=== PATIENT | male | born 1955 | race Hispanic/Latino ===

== ENCOUNTER 2018-03-21 16:49 | Emergency (ER) | payer BC ==
[~2018-03-21] VITALS: Ht 167.6 cm; Wt 83.9 kg
--- OUTSIDE RECORDS SUMMARY | 2018-03-21 16:51 | XMS REPORT ---
Author [facility] Address Unknown Phone Unavailable Care Team Providers Care Lease Broker Name Role Phone JULIANNA BEACH Unavailable Unavailable Problems This patient has no known problems. Allergies, Adverse Reactions, Alerts This patient has no known allergies or adverse reactions. Medications This patient has no known medications. Encounters Start Date/Time End Date/Time Encounter Type Admission Type Attending Clinicians Care Facility Care Department Encounter ID 2017-04-22 00:52:00 2017-04-22 01:55:00 Emergency E JULIANNA BEACH [facility] [id number] Results Test Description Test Time Test Comments Text Results Atomic Results Result Comments XR SHOULDER LEFT 3 VIEWS 2017-04-22 01:28:21 AFTER HOURS SERVICE ON: 04/22/2017 1:27 AMLeft Shoulder, 3 ViewsLocation Code [id number]: [id number]: Traumatic injuryFindings:There is normal anatomic alignment. No fracture or dislocation is seen. Glenohumeral joint is within normal limits. Mild degenerative spurring noted inthe acromioclavicular joint.Impression:1. No acute findings.2. Mild degenerative changes in the acromioclavicular joint. XR CHEST 2 VIEW 2017-04-22 01:27:01 AFTER HOURS SERVICE ON: 04/22/2017 1:26 AMChest, PA and LateralLocation Code [id number]: [id number]: Traumatic injuryFindings: There are no infiltrates. There are no pleural effusions. There is nopneumothorax. Cardiac silhouette and mediastinum appear within normal limits. Impression: No active intrathoracic findings.
[2018-03-21] MEDS ORDERED: DEXAMETHASONE SOD PHOS 10 MG/1 ML VIAL INJ ONE (17:15)
[2018-03-21] MEDS ORDERED: CYCLOBENZAPRINE HCL 10 MG TAB PO ONE (17:15)
[2018-03-21] MEDS ORDERED: HYDROCODONE/APAP 10MG-325MG TAB PO ONE (17:15)
== END 2018-03-21 18:20 | disposition home or self-care (01) ==
LOC: ER 16:49
DX: M54.42 Lumbago with sciatica, left side (principal); I10 Essential (primary) hypertension; E11.9 Type 2 diabetes mellitus without complications
CPT/HCPCS: 99283; J1100

== ENCOUNTER 2018-04-26 13:00 | Outpatient (RCR) | payer BC | END 2018-05-02 | LOC: PT 13:00 | PROVIDERS: ATTEND Family Medicine | DX: M54.16 Radiculopathy, lumbar region (principal) ==

== ENCOUNTER 2019-02-09 13:52 | Inpatient (IN) | payer BC ==
[~2019-02-09] VITALS: Ht 167.6 cm; Wt 73.2 kg
[2019-02-09] MEDS ORDERED: ASPIRIN 81 MG CHEW TAB PO ONE ×2 (14:15→18:00)
--- NOTE | 2019-02-09 14:37 | NUR ---
PATIENT TO ROOM 2
--- NOTE | 2019-02-09 14:43 | NUR ---
PATIENT BP 185/90, PATIENT RAN OUT OF MEDS AND DOES NOT HAVE A PCP
[2019-02-09 15:25] LABS: BASOPHILS # (AUTO) 0.1 (0.0-0.1); BASOPHILS % 0.4 % (0.0-1.0); EOSINOPHILS # (AUTO) 0.3 (0.0-0.4); EOSINOPHILS % 1.9 % (0.0-6.0); HEMATOCRIT 43.4 % (38.2-49.6); LYMPHOCYTES # (AUTO) 1.6 (1.0-3.2); LYMPHOCYTES % 11.7 % (18.0-39.1); MEAN CORPUSCULAR HEMOGLOBIN 29.9 pg (28-32); MEAN CORPUSCULAR HGB CONC 34.6 g/dL (31-35); MEAN CORPUSCULAR VOLUME 86.5 fL (81-99); MONOCYTES # (AUTO) 1.1 (0.2-0.8); MONOCYTES % 8.1 % (4.4-11.3); NEUTROPHILS # (AUTO) 10.3 (2.1-6.9); NEUTROPHILS % 77.3 % (38.7-80.0); PLATELET COUNT 304 x10e3/uL (140-360); RED BLOOD COUNT 5.02 x10e6/uL (4.3-5.7); RED CELL DISTRIBUTION WIDTH 11.9 % (11.7-14.4)
--- NOTE | 2019-02-09 15:26 | Diagnostic Imaging Report ---
EXAMINATION: CHEST SINGLE (PORTABLE) COMPARISON: None INDICATION: ^CHEST PAIN ^[id number] ^1445 ^Y DISCUSSION: Frontal view of the chest obtained at 1453 hours. HEART AND MEDIASTINUM: The heart is enlarged. There are calcifications of the aortic arch LINES: None. LUNGS: Pulmonary vascular markings are prominent. Right infrahilar airspace opacity. No pneumonia or pulmonary edema. PLEURA: No pleural effusion or pneumothorax. BONES AND SOFT TISSUES: Degenerative changes of the spine and shoulders.. The soft tissues are normal. IMPRESSION: Cardiomegaly and pulmonary vascular congestion. Right infrahilar airspace opacity may represent atelectasis or infiltrate Signed by: Dr. Naseem Blanco MD on 02/09/2019 3:22 PM
[2019-02-09 15:29] LABS: CLARITY,URINE HAZY (CLEAR); COLOR,URINE YELLOW (YELLOW); LEUKOCYTE ESTERASE ,URINE NEGATIVE (NEGATIVE); NITRITE,URINE NEGATIVE (NEGATIVE); PROTEIN,URINE DIPSTICK TRACE (NEGATIVE)
[2019-02-09 15:30] LABS: BILIRUBIN,URINE NEGATIVE (NEGATIVE); KETONES,URINE NEGATIVE (NEGATIVE); URINE UROBILINOGEN 0.2 mg/dL (0.2 - 1)
[2019-02-09 15:32] LABS: AMORPHOUS SEDIMENT,URINE FEW (FEW); BACTERIA,URINE FEW /HPF; EPITHELIAL CELLS,URINE FEW /LPF; RBC,URINE 0-5 /HPF (0-5); WBC,URINE (MAN) 0-5 /HPF (0-5)
[2019-02-09 15:39] LABS: INR 1.13
[2019-02-09 15:40] LABS: PARTIAL THROMBOPLASTIN TIME 34.3 seconds (23.8-35.5)
[2019-02-09 15:47] LABS: ALANINE AMINOTRANSFERASE 14 IU/L (0-55); ALBUMIN 3.2 g/dL (3.5-5.0); ALBUMIN/GLOBULIN RATIO 0.9 (0.8-2.0); ALKALINE PHOSPHATASE 73 IU/L (40-150); ANION GAP 13.4 mmol/L (8-16); BLOOD UREA NITROGEN 14 mg/dL (7-26); BUN/CREATININE RATIO 13 (6-25); CALCIUM 9.1 mg/dL (8.4-10.2); CARBON DIOXIDE 24 mmol/L (22-29); CHLORIDE 103 mmol/L (98-107); CREATINE KINASE 105 IU/L (30-200); CREATININE, SERUM 1.07 mg/dL (0.72-1.25); EST GLOMERULAR FILTRATION RATE > 60 ML/MIN (60-); GLUCOSE 305 mg/dL (74-118); POTASSIUM 3.4 mmol/L (3.5-5.1); SODIUM 137 mmol/L (136-145)
[2019-02-09] MEDS ORDERED: MORPHINE SULFATE 2 MG/ML SYR 1ML IV PRN (17:15)
[2019-02-09] MEDS ORDERED: ONDANSETRON HCL INJ 2MG/ML 2ML 2 MG/ML VIAL IV PRN (17:15)
[2019-02-09] MEDS ORDERED: NITROGLYCERIN 2% OINT 1 GM PKT ONE (17:26)
[2019-02-09] MEDS ORDERED: CEFTRIAXONE SOD 500 MG VIAL ONE (17:26)
[2019-02-09] MEDS ORDERED: FUROSEMIDE INJ 10 MG/ML 2 ML VIAL ONE (17:26)
[2019-02-09] MEDS: CEFTRIAXONE SOD 1 GM/NS 50 ML 50 ML IV SCH (17:44)
[2019-02-09] MEDS ORDERED: NITROGLYCERIN 2% OINT 1 GM PKT TOP SCH (18:00)
[2019-02-09] MEDS ORDERED: FUROSEMIDE INJ 10 MG/ML 2 ML VIAL IV ONE (18:00)
[2019-02-09] MEDS ORDERED: NITROGLYCERIN 2% OINT 1 GM PKT TOP ONE (18:00)
[2019-02-09] MEDS ORDERED: DEXTROSE 50% SYRINGE 50 ML IV PRN (18:00)
--- NOTE | 2019-02-09 18:02 | NUR ---
KITCHEN TO BRING PATIENT MEAL TRAY
[2019-02-09] MEDS: AZITHROMYCIN 500MG/NS 250 ML 250 ML IV SCH (18:09)
[2019-02-09] MEDS: INSULIN REGULAR, HUMAN 100 UNIT/1 ML 3ML VIAL SQ SCH (18:09)
[2019-02-09] MEDS ORDERED: GLYBURIDE-METF1 EAC1 PEG (18:23)
[2019-02-09] MEDS ORDERED: LOSARTAN (18:23)
[2019-02-09] MEDS ORDERED: HYDRALAZINE HCL 20 MG/ML VIAL IV PRN (20:30)
[2019-02-09 23:15] LABS: CREATINE KINASE MB 0.7 ng/mL (0-5.0)
[2019-02-10] VITALS (8 sets, daily range): BP systolic 151–174; BP diastolic 79–96
[2019-02-10] MEDS: NITROGLYCERIN 2% OINT 1 GM PKT TOP SCH ×4 (01:06→17:34)
[2019-02-10 05:44] LABS: BASOPHILS # (AUTO) 0.1 (0.0-0.1); BASOPHILS % 0.4 % (0.0-1.0); EOSINOPHILS # (AUTO) 0.2 (0.0-0.4); EOSINOPHILS % 1.3 % (0.0-6.0); HEMATOCRIT 43.6 % (38.2-49.6); HEMOGLOBIN 14.7 g/dL (14.0-18.0); LYMPHOCYTES # (AUTO) 1.9 (1.0-3.2); LYMPHOCYTES % 13.2 % (18.0-39.1); MEAN CORPUSCULAR HEMOGLOBIN 29.2 pg (28-32); MEAN CORPUSCULAR HGB CONC 33.7 g/dL (31-35); MEAN CORPUSCULAR VOLUME 86.7 fL (81-99); MONOCYTES # (AUTO) 1.5 (0.2-0.8); MONOCYTES % 10.1 % (4.4-11.3); NEUTROPHILS # (AUTO) 10.8 (2.1-6.9); NEUTROPHILS % 74.2 % (38.7-80.0); PLATELET COUNT 296 x10e3/uL (140-360); RED BLOOD COUNT 5.03 x10e6/uL (4.3-5.7); RED CELL DISTRIBUTION WIDTH 11.7 % (11.7-14.4)
[2019-02-10 06:18] LABS: CREATINE KINASE MB 0.7 ng/mL (0-5.0)
[2019-02-10 06:33] LABS: ALANINE AMINOTRANSFERASE 13 IU/L (0-55); ALBUMIN/GLOBULIN RATIO 0.8 (0.8-2.0); ALKALINE PHOSPHATASE 67 IU/L (40-150); ANION GAP 15.4 mmol/L (8-16); BLOOD UREA NITROGEN 13 mg/dL (7-26); BUN/CREATININE RATIO 13 (6-25); CALCIUM 9.5 mg/dL (8.4-10.2); CARBON DIOXIDE 22 mmol/L (22-29); CHLORIDE 102 mmol/L (98-107); CHOL/HDL RATIO 4.5 (3.9-4.7); CHOLESTEROL 131 MD/DL (0-199); EST GLOMERULAR FILTRATION RATE > 60 ML/MIN (60-); GLUCOSE 177 mg/dL (74-118); HDL CHOLESTEROL 29 MG/DL (40-60); LDL CHOLESTEROL 87 MG/DL (60-130); POTASSIUM 3.4 mmol/L (3.5-5.1); SODIUM 136 mmol/L (136-145); TRIGLYCERIDES 75 MG/DL (0-149)
--- NOTE | 2019-02-10 07:00 | NUR ---
RCD PT AT BED PT IS ALERT AND ORIENTED PT RESTING ON BED NO SIGNS OF ANY DISTRESS NOTED IV PATENT BY SALINE FLUSH FAMILY AT BED SIDE BED LOW AND LOCKED CALL LIGHT IN REACH
--- NOTE | 2019-02-10 07:04 | NUR ---
report given to day nurse. patient is resting comfortably in bed. bed is in lowest position and call rod is within reach.
[2019-02-10] MEDS: INSULIN REGULAR, HUMAN 100 UNIT/1 ML 3ML VIAL SQ SCH ×4 (07:30→21:00)
[2019-02-10] MEDS: ASPIRIN 81 MG ENTERIC COATED PO SCH (09:00)
[2019-02-10] MEDS: ALBUTEROL/IPRATROPIUM 3 ML NEB NEB SCH ×4 (11:00→23:00)
[2019-02-10] MEDS ORDERED: KCL 20MEQ/.9 SOD CHL 1,000 ML IV ONE (11:30)
[2019-02-10] MEDS ORDERED: POTASSIUM CHLORIDE 20 MEQ TAB CR PO ONE (11:45)
[2019-02-10] MEDS: METFORMIN HCL 500 MG TAB PO SCH ×2 (12:00→17:00)
[2019-02-10] MEDS: GLYBURIDE 5 MG TAB PO SCH ×2 (12:00→17:00)
[2019-02-10 15:59] LABS: CREATINE KINASE MB 0.8 ng/mL (0-5.0)
--- NOTE | 2019-02-10 16:06 | Consultation ---
DATE OF CONSULTATION: Pulmonary Critical Care Consultation CHIEF COMPLAINT: Congestion and cough with discolored phlegm. PRIMARY CARE PHYSICIAN: Dr. Bob Ortiz. HISTORY OF PRESENT ILLNESS: The patient is a 63-year-old man. He has a history of hypertension and diabetes, but has never had any cardiac problems. He denies any prior respiratory problems. He has no history of tuberculosis, bronchiectasis, COPD, or asthma. Over the past week, he has noticed increased fatigue. He reports a cough productive of some yellowish and green phlegm. He has no chest pain. He had some sweating at night and possibly some fevers. PAST MEDICAL HISTORY: 1. Hypertension. 2. Diabetes. 3. No prior history of tuberculosis, asthma, COPD, or other respiratory problems. PAST SURGICAL HISTORY: Status post appendectomy. FAMILY HISTORY: History of diabetes and kidney disease. There is also history of cancer in a sister. SOCIAL HISTORY: The patient is not an active smoker. He is not a drinker. 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 ALLERGIES: NO KNOWN DRUG ALLERGIES. REVIEW OF SYSTEMS: The patient did have some fever and chills. He had some night sweats. He has no headache. He has no neck pain. He did not complain of chest pain. He does have a cough productive of discolored phlegm. He has no abdominal pain. There is no nausea or vomiting. He has no leg edema. He has no neurological complaints. PHYSICAL EXAMINATION: VITAL SIGNS: Blood pressure is 154/83 and the pulse is 89. Respiratory rate is 18. Saturation is 96% on 2 L. CARDIAC: Reveals regular rate and rhythm with a normal S1 and S2. There are no murmurs or rubs. LUNGS: Auscultation of lungs reveals rhonchorous breath sounds bilaterally. There is no wheezing. ABDOMEN: Soft and nontender. There is no rebound or guarding. EXTREMITIES: Shows no leg edema or calf tenderness. There is no cyanosis or clubbing. SKIN: Shows no rashes. NEUROLOGICAL: Shows no focal abnormalities. RADIOGRAPHIC DATA: Chest x-ray shows cardiomegaly and some pulmonary venous congestion. There is a right airspace opacity, which may represent an infiltrate. LABORATORY DATA: Potassium is 3.4 and the other electrolytes within normal limits. Blood sugar is 170 to 180. White blood cell count is 14.6 and hemoglobin is 14.7. The platelet count is 296. IMPRESSION: 1. Community-acquired pneumonia with sepsis, present on admission. 2. Possible congestive heart failure. 3. Hypertension. 4. Diabetes. 5. Hypokalemia. PLAN: 1. Continue current antibiotics. 2. Judicious use of IV fluids. 3. Continue to monitor blood sugars and adjust insulin. 4. Await echocardiogram and Cardiology evaluation. 5. Nasal swab for influenza. Hector Hummel MD [facility]/MODL /[id number]
[2019-02-10] MEDS: FAMOTIDINE 20 MG TAB PO SCH (16:30)
[2019-02-10] MEDS: DOCUSATE SODIUM 100 MG CAP PO SCH (17:00)
[2019-02-10] MEDS: CEFTRIAXONE SOD 1 GM/NS 50 ML 50 ML IV SCH (17:30)
[2019-02-10] MEDS: AZITHROMYCIN 500MG/NS 250 ML 250 ML IV SCH (17:34)
--- NOTE | 2019-02-10 19:00 | NUR ---
PT RESTING ON BED BED SIDE REPORT GIVEN TO ONCOMING NURSE
--- NOTE | 2019-02-10 19:00 | NUR ---
Received patient awake, not in distress, no complaints of pain at this time, daughter at bedside. Call light within easy reach, advised to call anytime as needed. Will continue to monitor
--- NOTE | 2019-02-10 19:09 | NUR ---
Nutrition Screen Note RD Recommendation for Physician: -Recommend low sodium/diabetic diet Plan of Care: RD following, monitoring for tolerance and adequacy Nutrition reason for involvement: diagnosis - CHF Primary Diagnose(s): new onset congestive heart failure and pneumonia PMH: HTN, diabetes Ht: 66 in Wt:161.37 lb BMI: 26.0 kg/m2 IBW:[address] Assessment: (02/10/19) Chart reviewed. Labs and meds reviewed. Pt is a 63 year old male admitted with new onset CHF and pneumonia. Pt was sleeping at time of visit; therefore, spoke to family member. Pt has been eating 50% of meals for the past week and a half. Prior to this, pt was eating well. No wt loss reported by family member and pt usually weighs 165 lbs. However, pt currently has a wt of 161 lbs in chart. No N/V/D/C or chewing/swallowing issues noted. Will continue to monitor. Current Diet: 1800 kcal ADA diet Malnutrition Evaluation (02/10/19) The patient does not meet criteria for a specified degree of malnutrition at this time. Will re-evaluate at follow-up as appropriate. Energy intake: Pt has been eating 50% of meals for the past week and a half per family member. Weight loss: No weight loss reported Fat loss: unable to evaluate Muscle loss: unable to evaluate Supporting Evidence: Fluid accumulation: unable to evaluate Functional Status: unable to evaluate Diet Education Needs Assessment: Family member was interested in receiving diet education materials for pt. Pt speaks Lao, therefore, handouts in the Lao language regarding a low sodium and diabetic diet were provided. Nutrition Care Level: moderate Signed: Kayla Covarrubias, RD, LD
--- NOTE | 2019-02-10 19:22 | Diagnostic Imaging Report ---
CT chest pulmonary embolism protocol CPT code: 94568 INDICATION: ^Congestion and possible pneumonia ^[id number] ^1838 TECHNIQUE: Thin collimation axial images obtained through the level of the pulmonary arteries with additional imaging through the chest following the uneventful administration of 100 cc of low osmolar, nonionic intravenous contrast. Images reconstructed into coronal and sagittal MIPs for complete evaluation of the tortuous and overlapping pulmonary vascular structures and to reduce patient radiation dose. RADIATION DOSE: Total DLP: 492.96 mGy*cm Estimated effective dose: (DLP x 0.015 x size factor) mSv CTDIvol has been reviewed. It is below the limits set by the Radiation Protocol Committee (RPC). Dose reduction techniques used: Automated exposure control, adjustment of the mAs and/or kVp according to patient size, standardized low-dose protocol, and/or iterative reconstruction technique. COMPARISON: Chest x-ray 02/09/2019. FINDINGS: Images are motion degraded. Pulmonary artery: No filling defects are appreciated within the main, left, right, lobar or visualized segmental pulmonary arteries to suggest embolism. The main pulmonary artery measures 2.7 cm in diameter. The right pulmonary artery measures 2.3 cm in diameter. The left pulmonary artery measures 2.5 cm in diameter. Aorta: The ascending aorta measures 4.1 cm in diameter. No evidence for dissection. Lymph nodes: No enlarged axillary or supraclavicular lymph nodes. Lymph nodes in the AP window are increased in number measuring up to 7 mm. Right peritracheal lymph node measures 0.8 cm. Subcarinal lymph node measures 1.1 cm. The hilar lymphoid tissue is also prominent, right more so than the left. Thyroid: Visualized portions are normal. Mediastinum: The heart is enlarged. No pericardial effusion. The esophagus is collapsed. Lungs: Right Lung: Patchy infiltrates in the inferior aspect of the lower lobe. Small focus of groundglass attenuation the posterior upper lobe. Small amount of atelectasis in the lateral segment of the middle lobe adjacent to the diaphragm. Left Lung: Patchy infiltrates in the lower lobe and lingula. Microatelectasis in the posterior aspect of the upper lobe. Pleura: No pleural effusion or pleural based mass. Abdomen: Visualized portions of the upper abdomen demonstrate no evidence of mass or lymphadenopathy. The liver appears enlarged. Bones: No focal osseous lesions. Mild degenerative changes of the spine and shoulders. IMPRESSION: 1. Motion degraded exam. No evidence of pulmonary embolus. Ascending aortic aneurysm. No dissection. 2. Multifocal airspace opacities suggestive of pneumonia. Prominent mediastinal and hilar lymph nodes are likely reactive from infectious process. 3. Suspected hepatomegaly. This could be confirmed with abdominal ultrasound. 4. Cardiomegaly. No evidence of CHF. Signed by: Dr. Naseem Blanco MD on 02/10/2019 7:19 PM
[2019-02-10] MEDS ORDERED: IOPAMIDOL 370 MG/ML 200 ML INFUS..BTL INJ ONE (19:55)
[2019-02-10] MEDS ORDERED: SODIUM CHLORIDE 0.9% 50ML 50 ML ONE (19:55)
[2019-02-11] VITALS (10 sets, daily range): BP systolic 157–179; BP diastolic 72–97
[2019-02-11] MEDS: NITROGLYCERIN 2% OINT 1 GM PKT TOP SCH ×5 (00:21→23:25)
[2019-02-11] MEDS: ALBUTEROL/IPRATROPIUM 3 ML NEB NEB SCH ×5 (03:00→20:15)
[2019-02-11 03:43] LABS: BASOPHILS # (AUTO) 0.1 (0.0-0.1); BASOPHILS % 0.4 % (0.0-1.0); EOSINOPHILS # (AUTO) 0.1 (0.0-0.4); EOSINOPHILS % 0.8 % (0.0-6.0); HEMATOCRIT 42.1 % (38.2-49.6); HEMOGLOBIN 14.1 g/dL (14.0-18.0); LYMPHOCYTES # (AUTO) 1.8 (1.0-3.2); LYMPHOCYTES % 11.8 % (18.0-39.1); MEAN CORPUSCULAR HGB CONC 33.5 g/dL (31-35); MEAN CORPUSCULAR VOLUME 86.6 fL (81-99); MONOCYTES # (AUTO) 1.1 (0.2-0.8); MONOCYTES % 7.3 % (4.4-11.3); NEUTROPHILS # (AUTO) 12.1 (2.1-6.9); NEUTROPHILS % 78.7 % (38.7-80.0); PLATELET COUNT 309 x10e3/uL (140-360); RED BLOOD COUNT 4.86 x10e6/uL (4.3-5.7); RED CELL DISTRIBUTION WIDTH 11.7 % (11.7-14.4)
[2019-02-11 04:06] LABS: ANION GAP 14.5 mmol/L (8-16); BLOOD UREA NITROGEN 13 mg/dL (7-26); BUN/CREATININE RATIO 14 (6-25); CALCIUM 8.9 mg/dL (8.4-10.2); CARBON DIOXIDE 22 mmol/L (22-29); CHLORIDE 107 mmol/L (98-107); CREATININE, SERUM 0.96 mg/dL (0.72-1.25); EST GLOMERULAR FILTRATION RATE > 60 ML/MIN (60-); GLUCOSE 82 mg/dL (74-118); MAGNESIUM 2.1 MG/DL (1.3-2.1); PHOSPHORUS 3.5 MG/DL (2.3-4.7); POTASSIUM 3.5 mmol/L (3.5-5.1); SODIUM 140 mmol/L (136-145)
[2019-02-11] MEDS: HYDRALAZINE HCL 20 MG/ML VIAL IV PRN ×2 (05:36→20:16)
[2019-02-11] MEDS ORDERED: ACETAMINOPHEN 325 MG TAB PO PRN (05:45)
[2019-02-11] MEDS ORDERED: MELATONIN 5 MG TABLET PO PRN (05:45)
[2019-02-11] MEDS ORDERED: ACETAMINOPHEN/CODEINE 300MG - 30MG TAB PO PRN (05:45)
[2019-02-11] MEDS: INSULIN REGULAR, HUMAN 100 UNIT/1 ML 3ML VIAL SQ SCH ×4 (07:30→20:17)
[2019-02-11] MEDS: METFORMIN HCL 500 MG TAB PO SCH ×3 (08:55→17:20)
[2019-02-11] MEDS: FUROSEMIDE 20 MG TAB PO SCH (08:55)
[2019-02-11] MEDS: GUAIFENESIN 600MG/DEXTROMETHORPHAN 30MG TABSR PO SCH ×2 (08:55→19:00)
[2019-02-11] MEDS: DOCUSATE SODIUM 100 MG CAP PO SCH ×2 (08:55→17:20)
[2019-02-11] MEDS: POTASSIUM CHLORIDE 10MEQ EA PO SCH (08:55)
[2019-02-11] MEDS: GLYBURIDE 5 MG TAB PO SCH ×3 (08:55→17:20)
[2019-02-11] MEDS: ASPIRIN 81 MG ENTERIC COATED PO SCH (08:55)
[2019-02-11] MEDS: FAMOTIDINE 20 MG TAB PO SCH ×2 (08:55→17:20)
[2019-02-11] MEDS ORDERED: LOSARTAN POTASSIUM 25 MG TAB PO SCH (09:00)
[2019-02-11] MEDS ORDERED: SODIUM CHLORIDE 0.9% 250ML 250 ML ONE (16:51)
[2019-02-11] MEDS: CEFTRIAXONE SOD 1 GM/NS 50 ML 50 ML IV SCH (17:20)
[2019-02-11] MEDS: AZITHROMYCIN 500MG/NS 250 ML 250 ML IV SCH (18:18)
--- NOTE | 2019-02-11 18:34 | Progress Note ---
DATE: SUBJECTIVE: The patient feels better. He has less congestion and less cough. PHYSICAL EXAMINATION: VITAL SIGNS: The blood pressure is 162/87. Pulse is 93. Saturation is 89%. CARDIAC: Reveals regular rate and rhythm with normal S1 and S2. LUNGS: Auscultation of lungs reveals clear breath sounds bilaterally. There is no wheezing. ABDOMEN: Soft and nontender. There is no rebound or guarding. EXTREMITIES: Shows no leg edema or calf tenderness. There is no cyanosis or clubbing. SKIN: Shows no rashes. NEUROLOGICAL: Shows no focal abnormalities. DIAGNOSTIC DATA: CT scan of the chest shows multifocal airspace opacities, suggestive of pneumonia as well as some cardiomegaly. IMPRESSION: 1. Community-acquired pneumonia with sepsis, present on admission. 2. Hypertension. 3. Diabetes. PLAN: 1. Okay to switch to p.o. antibiotics. 2. Continue IV fluids. 3. Complete Cardiology evaluation. Hector Hummel MD [facility]/JOON /[id number]
--- NOTE | 2019-02-11 23:40 | NUR ---
PCT retook blood pressure just prior to new Nitro patch application. Blood pressure elevated and new nitro patch applied to left chest.
[2019-02-12] VITALS (13 sets, daily range): BP systolic 140–190; BP diastolic 70–88
[2019-02-12 02:24] LABS: BASOPHILS # (AUTO) 0.1 (0.0-0.1); BASOPHILS % 0.6 % (0.0-1.0); EOSINOPHILS # (AUTO) 0.3 (0.0-0.4); EOSINOPHILS % 2.1 % (0.0-6.0); HEMATOCRIT 38.8 % (38.2-49.6); LYMPHOCYTES # (AUTO) 2.2 (1.0-3.2); LYMPHOCYTES % 17.9 % (18.0-39.1); MEAN CORPUSCULAR HEMOGLOBIN 29.5 pg (28-32); MEAN CORPUSCULAR HGB CONC 33.5 g/dL (31-35); MONOCYTES # (AUTO) 0.9 (0.2-0.8); MONOCYTES % 7.6 % (4.4-11.3); NEUTROPHILS # (AUTO) 8.7 (2.1-6.9); NEUTROPHILS % 70.5 % (38.7-80.0); PLATELET COUNT 313 x10e3/uL (140-360); RED BLOOD COUNT 4.41 x10e6/uL (4.3-5.7); RED CELL DISTRIBUTION WIDTH 11.8 % (11.7-14.4)
[2019-02-12] MEDS: LEVALBUTEROL HCL SOLN NEBU 0.63 MG/3 ML NEB INH SCH ×3 (02:30→12:05)
[2019-02-12 02:40] LABS: ANION GAP 15.5 mmol/L (8-16); BLOOD UREA NITROGEN 11 mg/dL (7-26); BUN/CREATININE RATIO 13 (6-25); CALCIUM 8.6 mg/dL (8.4-10.2); CARBON DIOXIDE 20 mmol/L (22-29); CHLORIDE 110 mmol/L (98-107); CREATININE, SERUM 0.86 mg/dL (0.72-1.25); EST GLOMERULAR FILTRATION RATE > 60 ML/MIN (60-); GLUCOSE 71 mg/dL (74-118); MAGNESIUM 1.7 MG/DL (1.3-2.1); POTASSIUM 3.5 mmol/L (3.5-5.1); SODIUM 142 mmol/L (136-145)
--- NOTE | 2019-02-12 03:37 | Consultation ---
DATE OF CONSULTATION: 02/11/2019 Cardiology consultation CONSULTING PHYSICIAN: James Gonzalez MD, Interventional Cardiology. REASON FOR CONSULTATION: Heart failure. HISTORY OF PRESENT ILLNESS: Pleasant 63-year-old man with history of hypertension and diabetes mellitus type 2, former smoker, who presents with two weeks onset cough with productive sputum. He reports subjective fevers. He reports associated orthopnea in the last couple of days. He does endorse lower extremity dependent edema while working, however, now in recent days. Imaging studies were remarkable for cardiomegaly and patchy infiltrates concerning for pneumonia. His BNP noted to be elevated. ALLERGIES: NO KNOWN DRUG ALLERGIES. PAST MEDICAL HISTORY: Hypertension and diabetes. SOCIAL HISTORY: No active smoking, occasional alcohol use. No drugs. FAMILY HISTORY: Noncontributory. REVIEW OF SYSTEMS: A 12-system review is negative except for as noted above. HOME MEDICATIONS: Reviewed. Please see a separate note. PHYSICAL EXAMINATION: VITAL SIGNS: Temperature 96.1, heart rate is 77, blood pressure 174/97, respiratory rate 14, and O2 saturation 96%. BMI 25.9. GENERAL: In no acute distress. Alert. Neck: JVD elevated in lower third of neck. CHEST: With scattered rales. CARDIOVASCULAR: Regular rate and rhythm. Normal S1 and S2. No S3, no S4. Systolic ejection murmur 1/6. ABDOMEN: Soft. Bowel sounds positive. EXTREMITIES: No edema. Decreased right dorsalis pedis and posterior tibial pulses, 2+ left DP/PT pulses. CARDIOVASCULAR MEDICATIONS: 1. Aspirin 81 mg daily. 2. Losartan 25 mg daily. 3. Hydralazine 10 mg q.4 hours p.r.n. 4. Furosemide 20 mg daily. 5. Potassium chloride 10 mEq daily. 6. Receiving azithromycin and ceftriaxone. STUDIES: Reviewed. Sodium 140, potassium 3.5, chloride 107, bicarbonate 22, BUN 13, creatinine 0.9, and glucose 82. White blood cells 15, hemoglobin 14, and platelets 309. INR 1.13. AST 11 and ALT 13. ASSESSMENT AND PLAN: 1. A 63-year-old man presents with pneumonia, noted to have chronic systolic heart failure with acute exacerbation activated by elevated BNP and increasing orthopnea. 2. Diabetes. 3. Hypertension. RECOMMEND: 1. Echocardiogram remarkable for mild systolic impairment in LV function. 2. Beta austin and ARB. 3. Volume optimization with furosemide as needed. 4. At a later date as outpatient, coronary assessment advised. 5. On exam, abnormal pedal pulses to left lower extremity, warrant further outpatient evaluation for peripheral artery disease. This has been discussed with the patient. Thank you for the opportunity to participate in the care of Mr. Reginald Jensen. MD [facility]/JOON /[id number]
[2019-02-12] MEDS: NITROGLYCERIN 2% OINT 1 GM PKT TOP SCH (05:13)
[2019-02-12] MEDS ORDERED: ASPIRIN EC81 MG PO (06:40)
[2019-02-12] MEDS ORDERED: FUROSEMIDE20 MG PO (06:40)
[2019-02-12] MEDS ORDERED: METFORMIN HCL500 MG PO (06:40)
[2019-02-12] MEDS ORDERED: MUCINEX DM ER1 EACH PO (06:40)
[2019-02-12] MEDS ORDERED: GLYBURIDE5 MG PO (06:40)
[2019-02-12] MEDS ORDERED: CEFDINIR300 MG PO (06:40)
[2019-02-12] MEDS ORDERED: COZAAR25 MG PO (06:40)
[2019-02-12] MEDS ORDERED: K DUR10 MEQ PO (06:40)
[2019-02-12] MEDS ORDERED: ZITHROMAX500 MG PO (06:40)
[2019-02-12] MEDS ORDERED: NORVASC10 MG PO (06:40)
[2019-02-12] MEDS: INSULIN REGULAR, HUMAN 100 UNIT/1 ML 3ML VIAL SQ SCH ×3 (07:30→16:30)
[2019-02-12] MEDS: FAMOTIDINE 20 MG TAB PO SCH ×2 (08:25→16:44)
[2019-02-12] MEDS: GLYBURIDE 5 MG TAB PO SCH ×3 (08:25→16:44)
[2019-02-12] MEDS: ASPIRIN 81 MG ENTERIC COATED PO SCH (08:26)
[2019-02-12] MEDS: DOCUSATE SODIUM 100 MG CAP PO SCH ×2 (08:26→16:45)
[2019-02-12] MEDS: METFORMIN HCL 500 MG TAB PO SCH ×3 (08:26→16:44)
[2019-02-12] MEDS: FUROSEMIDE 20 MG TAB PO SCH (08:26)
[2019-02-12] MEDS: GUAIFENESIN 600MG/DEXTROMETHORPHAN 30MG TABSR PO SCH ×2 (08:26→16:44)
[2019-02-12] MEDS: POTASSIUM CHLORIDE 10MEQ EA PO SCH (08:26)
[2019-02-12] MEDS ORDERED: LOSARTAN POTASSIUM 25 MG TAB PO SCH (09:00)
[2019-02-12] MEDS ORDERED: AMLODIPINE BESYLATE 10 MG TAB PO SCH (09:00)
--- NOTE | 2019-02-12 11:55 | Progress Note ---
DATE: 02/12/2019 Cardiology Progress Note SUBJECTIVE: Shortness of breath and cough better today. OBJECTIVE: VITAL SIGNS: Temperature 96.5, heart rate 84, respiratory rate 22, blood pressure 160/85, and O2 saturation 97%. GENERAL: No acute distress, alert. NECK: No JVD. CHEST: Scattered rales. CARDIOVASCULAR: Regular rate and rhythm. Normal S1 and S2. ABDOMEN: Soft, nontender. Bowel sounds positive. EXTREMITIES: No edema. CARDIOVASCULAR MEDICATIONS: Reviewed aspirin 81 mg daily, furosemide 20 mg daily, potassium chloride 10 mEq daily, amlodipine 10 mg daily, which will be discontinued and switched to Carvedilol today. Losartan 50 mg daily that will be increased to 100 mg daily. LABORATORY STUDIES: Reviewed. Sodium 142, potassium 3.5, chloride 110, bicarbonate 20, BUN 11, creatinine 0.86, glucose 71. White blood cells 12.2, hemoglobin 13, platelets 313. INR 1.1. AST 11, ALT 13. ASSESSMENT: 1. A 63-year-old man with acute systolic heart failure, mild. 2. Pneumonia. 3. Diabetes mellitus. 4. Hypertension. 5. Suspected peripheral artery disease. RECOMMENDATIONS: 1. Carvedilol 12.5 mg every 12 hours. 2. Losartan 100 mg daily. 3. Discontinue amlodipine. 4. Furosemide. 5. Continue complete treatment for pneumonia. 6. Outpatient followup advised in 2 to 4 weeks for further evaluation of systolic heart failure, new diagnosis, as well as assessment of PAD. James Gonzalez MD [facility]/JOON /[id number]
[2019-02-12] MEDS ORDERED: CARVEDILOL 12.5 MG TAB PO SCH (12:15)
[2019-02-12] MEDS: CEFTRIAXONE SOD 1 GM/NS 50 ML 50 ML IV SCH (16:44)
[2019-02-12] MEDS ORDERED: AZITHROMYCIN 250 MG TAB PO SCH (18:00)
--- NOTE | 2019-02-12 18:09 | NUR ---
Radha notified of 1700 and 1800 BP readings. 140/78, 142/78. Orders received to continue with discharge home.
[2019-02-12] MEDS ORDERED: CARVEDILOL12.5 MG PO (18:39)
--- NOTE | 2019-02-12 18:55 | NUR ---
Discharge instructions and prescriptions were discussed at length with the patient and his daughters. They verbalized understanding. Coreg to be called in by [employer]CHNICIAN.
[2019-02-13] MEDS ORDERED: LOSARTAN POTASSIUM 100 MG TAB PO SCH (09:00)
--- NOTE | 2019-02-13 18:35 | Discharge Summary ---
DIAGNOSES: Community-acquired pneumonia present on admission, possible congestive heart failure, atelectasis, uncontrolled hypertension, type 2 diabetes, dehydration with volume loss due to diarrhea, hypokalemia. DISCHARGE DIAGNOSES: Community-acquired pneumonia present on admission, possible congestive heart failure, atelectasis, uncontrolled hypertension, type 2 diabetes, dehydration with volume loss due to diarrhea, hypokalemia plus rule out flu, chronic systolic congestive heart failure. HISTORY: Hypertension, type 2 diabetes. SURGICAL HISTORY: Appendectomy. FAMILY HISTORY: The patient's dad had diabetes. The patient's sister has end-stage renal disease. SOCIAL HISTORY: The patient admits to occasional alcohol and tobacco use. HOSPITAL COURSE: A 63-year-old male with seven days of productive cough and weakness with proximal sweating. His co-worker had a cough as well and they were inside the same hotel room in [place]. He denies any use of home oxygen. He went to a clinic on 02/09, but was not prescribed any medication. On admission, chest x-ray showed cardiomegaly and pulmonary vascular congestion. CT of the chest showed multifocal airspace opacity suggestive of pneumonia suspected hepatomegaly and cardiomegaly. Blood culture was negative. Flu was negative. Troponin was negative x4. BNP was 337, so he had an echo done, which showed an EF of about 50%. After a few days of IV antibiotics, the patient is feeling better. His blood pressure remains uncontrolled during hospitalization, so his blood pressure medications were changed to losartan 100 mg daily and Coreg 12.5 q.12. He will continue Zithromax and Omnicef at home as well as Lasix and potassium for the CHF. His metformin was increased as his A1c was over 9. The patient will discharge home and follow up with primary care in 1 to 2 weeks. Vital signs stable. The patient afebrile. The patient understands discharge instructions and agrees to plan. Dictated by Radha Callahan NP Hipolito Franklin MD [facility]/MODL /[id number]
== END 2019-02-12 19:21 | disposition home or self-care (01) | DRG 871 ==
LOC: ER 13:52 → ERHOLD 17:14 → MED/SURG2 02-10 02:16
PROVIDERS: ADMIT Internal Medicine; ATTEND Internal Medicine
DX: A41.9 Sepsis, unspecified organism (principal); J18.9 Pneumonia, unspecified organism; E87.6 Hypokalemia; E11.9 Type 2 diabetes mellitus without complications; E86.0 Dehydration; I11.0 Hypertensive heart disease with heart failure; E11.51 Type 2 diabetes mellitus with diabetic peripheral angiopathy without gangrene; Z87.891 Personal history of nicotine dependence; Z79.4 Long term (current) use of insulin
CPT/HCPCS: 36415; 71045; 71260; 80048; 80053; 80061; 81001; 82550; 82553; 82948; 83036; 83735; 83880; 84100; 84484; 85025; 85610; 85730; 87040; 87400; 93005; 93306; 94640; 99284; J0360; J0456; J0696; J1817; J1940; J7050; Q9967

== ENCOUNTER 2019-04-14 08:59 | Observation (INO) | payer BC ==
[~2019-04-14] VITALS: Ht 167.6 cm; Wt 79.8 kg
[2019-04-14] VITALS (15 sets, daily range): BP systolic 116–193; BP diastolic 66–90
[~2019-04-14 08:59] MED LIST: ASPIRIN EC81 MG PO; CARVEDILOL12.5 MG PO; CEFDINIR300 MG PO; COZAAR25 MG PO; ENTRESTO 49 MG1 EACH PO; FUROSEMIDE20 MG PO; FUROSEMIDE40 MG PO; GLYBURIDE-METF1 EAC1 PEG; GLYBURIDE5 MG PO; K DUR10 MEQ PO; LOSARTAN; METFORMIN HCL500 MG PO; MUCINEX DM ER1 EACH PO; NORVASC10 MG PO; POTASSIUM CHLO10 ME1 PO; ZITHROMAX500 MG PO
[2019-04-14 09:26] LABS: BASOPHILS # (AUTO) 0.1 (0.0-0.1); BASOPHILS % 0.7 % (0.0-1.0); EOSINOPHILS # (AUTO) 0.5 (0.0-0.4); EOSINOPHILS % 5.3 % (0.0-6.0); HEMATOCRIT 44.1 % (38.2-49.6); HEMOGLOBIN 14.8 g/dL (14.0-18.0); LYMPHOCYTES # (AUTO) 2.1 (1.0-3.2); LYMPHOCYTES % 23.8 % (18.0-39.1); MEAN CORPUSCULAR HEMOGLOBIN 29.1 pg (28-32); MEAN CORPUSCULAR HGB CONC 33.6 g/dL (31-35); MEAN CORPUSCULAR VOLUME 86.8 fL (81-99); MONOCYTES # (AUTO) 0.7 (0.2-0.8); MONOCYTES % 7.2 % (4.4-11.3); NEUTROPHILS # (AUTO) 5.7 (2.1-6.9); NEUTROPHILS % 62.7 % (38.7-80.0); PLATELET COUNT 245 x10e3/uL (140-360); RED BLOOD COUNT 5.08 x10e6/uL (4.3-5.7); RED CELL DISTRIBUTION WIDTH 13.1 % (11.7-14.4)
[2019-04-14 09:36] LABS: INR 0.96; PROTHROMBIN TIME 13.4 seconds (11.9-14.5)
[2019-04-14 09:37] LABS: PARTIAL THROMBOPLASTIN TIME 29.7 seconds (23.8-35.5)
[2019-04-14 09:43] LABS: ALANINE AMINOTRANSFERASE 20 IU/L (0-55); ALBUMIN 3.9 g/dL (3.5-5.0); ALBUMIN/GLOBULIN RATIO 1.3 (0.8-2.0); ALKALINE PHOSPHATASE 62 IU/L (40-150); ANION GAP 14.9 mmol/L (8-16); BLOOD UREA NITROGEN 15 mg/dL (7-26); BUN/CREATININE RATIO 12 (6-25); CALCIUM 9.3 mg/dL (8.4-10.2); CARBON DIOXIDE 27 mmol/L (22-29); CHLORIDE 107 mmol/L (98-107); CREATININE, SERUM 1.21 mg/dL (0.72-1.25); EST GLOMERULAR FILTRATION RATE > 60 ML/MIN (60-); GLUCOSE 264 mg/dL (74-118); POTASSIUM 4.9 mmol/L (3.5-5.1); SODIUM 144 mmol/L (136-145)
[2019-04-14 10:01] LABS: CHOL/HDL RATIO 4.4 (3.9-4.7)
[2019-04-14] MEDS ORDERED: ASPIRIN 325 MG TAB ONE (10:12)
[2019-04-14] MEDS ORDERED: SODIUM CHLORIDE 0.9% 1000ML 1,000 ML ONE (10:12)
[2019-04-14] MEDS ORDERED: MIDAZOLAM HCL 2 MG/2 ML VIAL ONE (11:02)
[2019-04-14] MEDS ORDERED: HEPARIN SOD (PORCINE) 1000 UNIT/ML 30ML ONE (11:02)
[2019-04-14] MEDS ORDERED: FENTANYL CITRATE/PF 100MCG/2 ML INJ ONE (11:03)
[2019-04-14] MEDS ORDERED: LIDOCAINE HCL 2% LOCAL 20 ML VIAL ONE ×2 (11:03→11:26)
[2019-04-14] MEDS ORDERED: HEPARIN SOD/SOD CHLORIDE 2,000 ML ONE (11:03)
[2019-04-14] MEDS ORDERED: IOPAMIDOL 370 MG/ML 200 ML INFUS..BTL INJ ONE (11:04)
[2019-04-14] MEDS ORDERED: NITROGLYCERIN/D5W 200 MCG/ML 250 ML ONE (11:04)
[2019-04-14] MEDS ORDERED: ADENOSINE 3MG/1ML 30ML VIAL ONE (11:49)
[2019-04-14] MEDS ORDERED: SODIUM CHLORIDE 0.9% 50ML 50 ML ONE (11:49)
[2019-04-14] MEDS ORDERED: CLOPIDOGREL BISULFATE 75 MG TAB ONE (12:15)
--- NOTE | 2019-04-14 14:38 | Operative Report ---
DATE OF PROCEDURE: 04/14/2019 SURGEON: James Gonzalez MD PROCEDURE INDICATIONS: Angina pectoris, chronic systolic heart failure, known CAD. PROCEDURES PERFORMED: 1. Coronary angiography. 2. LAD FFR. 3. LAD drug-eluting stent PCI. 4. Intravascular ultrasound of LAD. 5. A 6-Ukrainian Angio-Seal closure of the right common femoral artery. PROCEDURE COMPLICATIONS: None. ESTIMATED BLOOD LOSS: Less than 15 mL. PROCEDURE SUMMARY: After consent was obtained, the patient was prepped and draped in a sterile fashion. The right femoral site was locally infiltrated with 2% lidocaine and access was obtained with micropuncture kit. A 6-Ukrainian sheath was placed. All catheters were railed over leading J-wire XB LAD 4.0, no side holes. A 6-Ukrainian guide catheter was used for engagement of left main. COGEON FFR wire was advanced with previous administration of heparin to maintain an ACT over 250 and aspirin loading. When intervention was started on, additional Plavix load of 600 mg was administered in the cardiac catheterization technician. The LAD was interrogated with an FFR wire, with dFR 0.86 and with FFR 0.78. With wire positioned distal to the area of 60% stenosis of the mid segment of LAD, which was diffuse in nature. A primary stenting with target lesion was performed with 2.5 x 32 cm drug-eluting stent, deployed to 14 atmospheres and post dilated in the proximal segment with 2.75 x 8 NC Quantum apex, inflated to 18 atmospheres. Final angiography reveals RASHID-3 flow. Preprocedure stenosis 60%. Postprocedure stenosis 0%. DFR post intervention was 0.93. Hazy area in the proximal LAD was observed and it was decided to proceed with intravascular ultrasound assessment of this segment, which revealed an eccentric and calcific 30% to 40% area of stenosis by intravascular ultrasound assessment. CONCLUSION: Successful revascularization of the mid LAD with drug-eluting stent with residual bejz-jk-edeszefn disease of proximal LAD. ANGIOGRAPHIC FINDINGS: 1. Left main has less than 20% stenosis in the distal segment. It gives an LAD, ramus intermedius, and circumflex. 2. The LAD has proximal 30% to 40% by IVUS. Mid segment has 60% tubular stenosis, which was treated with drug-eluting stent as described above. Ramus intermedius, small in caliber with luminal irregularities and circumflex has less than 30% areas of stenosis and gives 2 obtuse marginal and 2 left posterolateral branches. 3. The right coronary artery was not evaluated on this angiogram. Please see separate report for previous angiographic assessment of the RCA, which has known mid segment chronic total occlusion with distal reconstitution via collaterals. 4. Aortic pressure was 173/60. CONCLUSION: Drug-eluting stent PCI of the mid LAD. RECOMMEND: Aspirin and Plavix, bedrest after 6-Ukrainian Angio-Seal closure. James Gonzalez MD [facility]/MODL /[id number]
[2019-04-14] MEDS ORDERED: FUROSEMIDE 40 MG TAB PO PRN (15:15)
--- NOTE | 2019-04-14 16:45 | NUR ---
Patient's right groin site continues to be dry and intact with no signs of hematoma. BL pedal pulses are strong. Flat time is up at 1630 per slab off mill tender nurse.
[2019-04-14] MEDS: METFORMIN HCL 500 MG TAB PO SCH (17:03)
[2019-04-14] MEDS: CARVEDILOL 12.5 MG TAB PO SCH (17:04)
--- NOTE | 2019-04-14 19:00 | NUR ---
RECEIVED PATIENT IN BEDSIDE SHIFT REPORT. PATIENT A&OX4. NO PAIN REPORTED. NO S&S OF DISTRESS NOTED. DRESSING TO R GROIN C/D/I, SURROUNDING TISSUE NORMAL AND SOFT. PEDAL PULSES PALPABLE. BED LOCKED IN LOWEST POSITION, SIDE RAILS UPX2, CALL LIGHT IN REACH.
[2019-04-15] VITALS: BP 168/84
[2019-04-15 04:00] VITALS: BP 168/81
[2019-04-15] MEDS ORDERED: GLYBURIDE 5 MG TAB PO SCH (07:30)
[2019-04-15 08:24] VITALS: BP 182/74
[2019-04-15 09:00] VITALS: BP 182/74
[2019-04-15] MEDS ORDERED: ASPIRIN 81 MG ENTERIC COATED PO SCH (09:00)
[2019-04-15] MEDS ORDERED: SACUBITRIL/VALSARTAN 1 EACH TABLET PO SCH (09:00)
[2019-04-15] MEDS ORDERED: ASPIRIN 325 MG TAB PO SCH (09:00)
[2019-04-15] MEDS ORDERED: POTASSIUM CHLORIDE 10MEQ EA PO SCH (09:00)
[2019-04-15] MEDS ORDERED: CLOPIDOGREL BISULFATE 75 MG TAB PO SCH (09:00)
[2019-04-15] MEDS: METFORMIN HCL 500 MG TAB PO SCH (09:01)
[2019-04-15] MEDS: CARVEDILOL 12.5 MG TAB PO SCH (09:01)
--- NOTE | 2019-04-15 09:10 | NUR ---
Notified Dr. Vinson that patient's BP this am is 182/74. Orders to give am PO meds and recheck in one hour.
--- NOTE | 2019-04-15 10:15 | NUR ---
Repeat BP is 144/72. Will continue with dc home
--- NOTE | 2019-04-15 10:15 | NUR ---
Per Dr. Vinson if repeat BP is <160 can dc home.
[2019-04-15] MEDS ORDERED: CLOPIDOGREL75 MG PO (10:51)
--- NOTE | 2019-04-15 11:17 | NUR ---
Discharge instructions and prescription were given to the patient and his . They verbalized understanding. IV to the left hand was removed with tip intact.
[2019-04-15 11:21] VITALS: BP 142/77
== END 2019-04-15 11:42 | disposition home or self-care (01) ==
LOC: CATH LAB 08:59 → CATH LAB V 12:38 → MED/SURG2 14:22
PROVIDERS: ADMIT Internal Medicine Cardiovascular Disease; ATTEND Internal Medicine Cardiovascular Disease
DX: I25.119 Atherosclerotic heart disease of native coronary artery with unspecified angina pectoris (principal); I11.0 Hypertensive heart disease with heart failure; I50.22 Chronic systolic (congestive) heart failure; E11.8 Type 2 diabetes mellitus with unspecified complications; I70.219 Atherosclerosis of native arteries of extremities with intermittent claudication, unspecified extremity; Z79.82 Long term (current) use of aspirin; Z79.84 Long term (current) use of oral hypoglycemic drugs; Z79.02 Long term (current) use of antithrombotics/antiplatelets
CPT/HCPCS: 36415 ×2; 80053; 80061; 82948 ×2; 85025; 85610; 85730; 92928; 92978; 93571; C1725; C1753; C1760; C1769; C1874; G0378 ×2; J0153; J1644; J2001; J2250; J3010; J7030; Q9967; 99152; 99153